=== PATIENT | female | born 1945 | race Caucasian/White ===

== ENCOUNTER 2019-01-18 18:18 | Emergency (ER) | payer OTHER ==
[~2019-01-18] VITALS: Ht 165.1 cm; Wt 54.4 kg
[2019-01-18] MEDS ORDERED: Percocet 5-3251 EACH PO (19:42)
== END 2019-01-18 19:58 | disposition home or self-care (01) ==
LOC: ER 18:18
DX: S42.201A Unspecified fracture of upper end of right humerus, initial encounter for closed fracture (principal); X50.9XXA Other and unspecified overexertion or strenuous movements or postures, initial encounter
CPT/HCPCS: 73030; 99283-25